=== PATIENT | female | born 1955 | race Hispanic/Latino ===

== ENCOUNTER 2022-09-09 16:46 | Observation (INO) | payer OTHER ==
--- OUTSIDE RECORDS SUMMARY | 2022-09-09 16:49 | XMS REPORT | Continuity of Care Document ---
:1955 Author Organization [facility] t Address [address] [address] [place] [id number] Care Team Providers Name Role Phone CHARLETTE FRAUSTO Primary Care Physician Unavailable RADIOLOGY Attending Clinician Unavailable Radiology Attending Clinician Unavailable Doctor Unassigned, [place] Attending Clinician Unavailable Artie De La Cruz RN Attending Clinician Unavailable BRIDGET ISAACS Attending Clinician Unavailable Lab, Adc Fam Pob I Attending Clinician Unavailable Bridget Almaraz Attending Clinician Maxine Arteaga MD Attending Clinician MAXINE ARTEAGA Attending Clinician Unavailable CHARLETTE FRAUSTO Admitting Clinician Unavailable Payers Payer Name Policy Type Policy Number Effective Date Expiration Date S sadia [employer] [id number] 2018 OUT OF NETWORK 00:00:00 Problems Condition Condition Condition Status Onset Resolution Last Treating Co mments Source Name Details Category Date Date Treatment Clinician Date No known No known Disease Unive rs active active ity of problems problems [facility] Allergies, Adverse Reactions, Alerts Allergy Allergy Status Severity Reaction(s) Onset Inactive Treating Comm ents Source Name Type Date Date Clinician SHELLFIS DRUG Active SOB 2019-0 Univers H INGREDI 9-10 ity of DERIVED 00:00: [place] [facility] [place] Shellfis Propensi Active Shortness of 2019-0 Univers h ty to Breath 9-10 ity of Derived adverse 00:00: [place] [facility] Social History Social Habit Start Date Stop Date Quantity Comments Source Exposure to Not sure [facility] SARS-CoV-2 (event) Medica l Branch Sex Assigned [birth year] [facility] 00:00:00 00:00:00 Medical Branch Smoking Status Start Date Stop Date Source Unknown if ever smoked [facility] Medications Ordered Filled Start Stop Current Ordering Indication Dosage Frequency Signature Comments Components Source Medication Medication Date Date Medication? Clinician (SIG) Name Name alendronate Yes TAKE 1 Univ ers 35 mg 8-22 TABLET BY ity of tablet 00:00: MOUTH ONCE [place] [facility] alendronate Yes TAKE 1 Univ ers 35 mg 8-22 TABLET BY ity of tablet 00:00: MOUTH ONCE [facility] alendronate Yes TAKE 1 Univ ers 35 mg 8-22 TABLET BY ity of tablet 00:00: MOUTH ONCE [facility] alendronate Yes TAKE 1 Univ ers 35 mg 8-22 TABLET BY ity of tablet 00:00: MOUTH ONCE [facility] alendronate Yes TAKE 1 Univ ers 35 mg 8-22 TABLET BY ity of tablet 00:00: MOUTH ONCE [facility] alendronate Yes TAKE 1 Univ ers 35 mg 8-22 TABLET BY ity of tablet 00:00: MOUTH ONCE [facility] alendronate Yes TAKE 1 Univ ers 35 mg 8-22 TABLET BY ity of tablet 00:00: MOUTH ONCE [facility] alendronate Yes TAKE 1 Univ ers 35 mg 8-22 TABLET BY ity of tablet 00:00: MOUTH ONCE [facility] alendronate Yes TAKE 1 Univ ers 35 mg 8-22 TABLET BY ity of tablet 00:00: MOUTH ONCE [facility] Vital Signs Vital Name Observation Time Observation Value Comments Source Systolic blood 2018-12-09 15:06:00 93 mm[Hg] Univer sity of pressure [facility] Diastolic blood 2018-12-09 15:06:00 61 mm[Hg] Unive rsity of pressure [facility] Heart rate 2018-12-09 15:06:00 65 /min [facility] Body temperature 2018-12-09 15:06:00 36.67 Sharyn Univ ersity [facility] Respiratory rate 2018-12-09 15:06:00 18 /min General acute hospital Body height 2018-12-09 15:06:00 167.6 cm [facility] Body weight 2018-12-09 15:06:00 69.31 kg [facility] BMI 2018-12-09 15:06:00 24.66 kg/m2 [facility] Procedures Procedure Date / Time Performing Clinician Source Performed BI SCREENING 2021-02-09 16:39:00 Requisition, Paper [facility] TOMOSYNTHESIS BILATERAL Medical Branch BI SCREENING 2020-01-12 21:45:03 Requisition, Paper [facility] TOMOSYNTHESIS BILATERAL [facility] Branch DEXA AXIAL (HIP AND 2020-01-12 21:06:52 Requisition, Paper [facility] SPINE) Medical Branch ASSIGNMENT OF BENEFITS 2020-01-12 20:15:50 Doctor Unassigned, No [facility] Name [facility] ASSIGNMENT OF BENEFITS 2018-12-09 14:51:40 Doctor Unassigned, No [facility] Encounters Start End Encounter Admission Attending Care Care Encounter Source Date/Time Date/Time Type Type Clinicians Facility Department ID 2021-02-09 2021-02-09 Outpatient R RADIOLOGY [facility] [id number] Univers 10:06:47 23:59:00 ity of [facility] 2021-02-09 2021-02-09 [facility] Radiology [facility] [id number] Univers 10:00:00 23:59:00 Encounter [place] [id number] ity of [place] [id number] [facility] [phone] [address] 2020-01-12 2020-01-12 [facility] Radiology [place] [id number] Univers 15:30:24 23:59:00 Encounter [place] [id number] ity of [place] [id number] [facility] [phone] [address] 2020-01-12 2020-01-12 [facility] Radiology [facility] [id number] Univers 15:00:00 15:29:00 Encounter [place] [id number] ity of [place] [id number] [facility] [phone] [facility] [address] [place] 2020-01-12 2020-01-12 Outpatient R RADIOLOGY [facility] [id number] Univers 00:00:00 00:00:00 ity of [facility] 2020-01-12 2020-01-12 Orders Doctor SANTI[place] [id number] Univers 00:00:00 00:00:00 Only Unassigned, JATIN [id number] ity of [place] [facility] [id number] [place] [phone] [facility] 009 [place] 2019-11-29 2019-11-29 Telephone JACK De La Cruz [id number] Univers 00:00:00 00:00:00 Artie JATIN [id number] it y of HOSPITAL [id number] [place] [phone] [facility] 019 [place] 2019-11-28 2019-11-28 Outpatient R FERNY [facility] [id number] Univers 16:00:00 16:00:00 BRIDGET jessicamelanie [facility] 2019-11-28 2019-11-28 Laboratory Lab, Adc Fam Pob I [facility] 1.2. [id number] Univers 15:27:59 15:35:04 Only Bridget Isaacs [facility] [id number] ity of [place] [id number] [place] Shobha [phone] [address] Office [address] [employer] 2019-11-28 2019-11-28 Letter Doctor JACK [id number] Univers 00:00:00 00:00:00 (Out) Unassigned, JATIN [id number] ity of [place] [facility] [id number] [place] [phone] [facility] 044 [place] 2019-01-02 2019-01-02 Outpatient R RADIOLOGY [facility] [id number] Univers 14:33:50 23:59:00 ity [facility] 2018-12-09 2018-12-09 Office Pelon [facility] [id number] Univers 09:54:15 10:54:45 Visit Maxine Salcedo [id number] [id number] [place] [phone] Mi dical nal 205 Branch [facility] 2018-12-09 2018-12-09 Outpatient R PELON [facility] [id number] Univers 09:45:00 10:54:45 MAXINE lopezy o f [facility] 2018-12-09 2018-12-09 Orders Doctor JACK [id number] Univers 00:00:00 00:00:00 Only Unassigned, JATIN [id number] ity of [place] [facility] [id number] [place] [phone] [facility] 009 Branch Results Test Description Test Time Test Comments Results Result Sourc e Comments BI SCREENING 2019-12-31 Examination:BI Universi ty of TOMOSYNTHESIS 3 SCREENING [place] [facility] BILATERAL 21:58:42 TOMOSYNTHESIS Branch BILATERAL History:Patient is 64 year old and is seen for: ?Breast cancer screening. Computer-aided detection (CAD) utilized. Comparisons: 01/02/2019 BI SCREENING TOMOSYNTHESIS BILATERAL, 04/04/2017 SCREENING DIGITAL BREAST TYLER, and 02/26/2014 BI SCREENING MAMMOGRAM BILATERAL Findings:The breasts are heterogeneously dense, which may obscure small masses. BilateralThere are skin and round calcifications seen in both breasts. Compared to the previous study, there are no significant changes. Impression:No signs of malignancy. Recommendation:[place] mammographic follow-up - Bilateral BI-RADS Category: Both 2 - Benign DEXA AXIAL (HIP 2019-12-31 HISTORY: Age Univers ity of AND SPINE) 3 related [facility] 21:17:28 osteoporosis. Branch TECHNIQUE: Bone density estimation is done using DEXA scan, over the righthip and lumbar spines. FINDINGS: Details of the results are enclosed for your review. The summaryis as follows. RIGHT HIP:BMD value is 0.761 gm/sq cm, with T-score of -2.0. Estimated BMD in theneck is 0.748 g/sq cm with T score of - 2.1. Slight further loss of bonemineral density noted since March 2018 study. LUMBAR SPINES:Average BMD value from L1 through L4 is 0.856 gm/sq cm, with T-score - 2.7.There is slight further loss of bone mineral density when compared withDecember 2018 study. 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 ASSESSMENT: WHO-definitions: T-score normal: +/- 1 SD around the meanosteopenia: >1 to 2.4 SD below the meanosteoporosis: >2.5 SD below the meanFracture risk doubles for each 1.5 SD below the mean. [facility], Radiant Results Inft User - 01/12/2020 4:18 PM CDTHISTORY: Age related osteoporosis.TECHNI QUE: Bone density estimation is done using DEXA scan, over the righthip and lumbar spines.FINDINGS: Details of the results are enclosed for your review. The summaryis as follows.RIGHT HIP:BMD value is 0.761 gm/sq cm, with T-score of -2.0. Estimated BMD in theneck is 0.748 g/sq cm with T score of - 2.1. 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
[2022-09-09 17:29] LABS: Absolute Lymphocytes (CBC) 2.1 K/uL (0.7-4.9); Hematocrit 40.9 % (36.0-45.0); Lymphocytes % 29.1 % (15.3-44.8); MCV 90.9 fL (80-100); MPV 9.6 fL (7.6-11.3)
[2022-09-09 17:38] LABS: Protime INR 1.07
[2022-09-09 17:47] LABS: Magnesium 2.2 mg/dL (1.6-2.4); Potassium 3.9 mEq/L (3.5-5.1); Troponin High Sensitivity 3.4 pg/mL (<58.9)
--- NOTE | 2022-09-09 18:11 | RAD REPORT ---
EXAM DESCRIPTION: Raphael Single View09/09/2022 5:44 pm CLINICAL HISTORY: Chest pain COMPARISON: none FINDINGS: The lungs appear clear of acute infiltrate. The heart is normal size IMPRESSION: No acute abnormalities displayed
--- NOTE | 2022-09-09 18:47 | RAD REPORT ---
EXAM DESCRIPTION: CT - Head Brain Wo Cont - 09/09/2022 6:30 pm CLINICAL HISTORY: Left arm numbness COMPARISON: 2011 TECHNIQUE: Computed axial tomography of the head was obtained. IV contrast was not requested. All CT scans are performed using dose optimization technique as appropriate and may include automated exposure control or mA/KV adjustment according to patient size. FINDINGS: An intracranial bleed is not seen The ventricles are normal in caliber No extra-axial fluid collection is noted. Small low-density areas right frontal lobe unchanged probably old infarction Fluid within the sinuses/ mastoids is not seen. IMPRESSION: No acute intracranial abnormality is seen If patient's symptoms persist MRI of the brain would be recommended
[2022-09-09] MEDS ORDERED: HYDROCODONE/APAP 5/325 MG TAB ONE (18:54)
[2022-09-09] MEDS ORDERED: METOCLOPRAMIDE 10 MG/2mL INJ ONE (18:54)
[2022-09-09] MEDS ORDERED: NA CHLORIDE 0.9% 500 ML ONE (18:54)
--- NOTE | 2022-09-09 18:57 | RAD REPORT ---
EXAM DESCRIPTION: CT - Chest Abd Pelvis Wo Con - 09/09/2022 6:31 pm CLINICAL HISTORY: Chest and abdominal pain. Left arm numbness COMPARISON: none TECHNIQUE: Computed axial tomography of the chest, abdomen and pelvis was obtained. Oral contrast wa s given. IV contrast was not requested. All CT scans are performed using dose optimization technique as appropriate and may include automated exposure control or mA/KV adjustment according to patient size. FINDINGS: The evaluation of mediastinum, colleen, vessels and solid organs is limited secondary to the lack of IV contrast administration Calcified granuloma right lung. Remainder of the lungs are clear No mediastinal or hilar lymphadenopathy is seen. A pleural effusion is not present. A pericardial effusion is not seen. The liver, spleen, pancreas, adrenals and kidneys appear grossly normal There is no evidence of diverticulitis. 5.7 x 2.7 centimeter soft tissue structure left lower pelvis IMPRESSION: 5.7 x 2.7 centimeter soft tissue structure left pelvis. Pelvic ultrasound recommended
--- NOTE | 2022-09-09 19:03 | ER ---
Nurse's Notes [facility] Name: Anali Mishra Age: 66 yrs Sex: Female : 1955 Arrival Date: 09/09/2022 Time: 16:46 Bed 18 Private MD: Diagnosis: Paresthesia of skin;Chest pain, unspecified Presentation: 09/09 16:59 Chief complaint: Patient states: this morning I woke up with numbness in my left arm, iw it has gotten better throughout the day except in my fingers, also have pain in my left side of body and pain in my back , also left side of my neck is stiff, over a week ago I started feeling like i have water in my left ear, she has had the pain on and off since last week , but this is the first time I had numbness. Coronavirus screen: At this time, the client does not indicate any symptoms associated with coronavirus-19. Ebola Screen: Patient negative for fever greater than or equal to 101.5 degrees Fahrenheit, and additional compatible Ebola Virus Disease symptoms Patient denies exposure to infectious person. Patient denies travel to an Ebola-affected area in the 21 days before illness onset. No symptoms or risks identified at this time. Initial Sepsis Screen: Does the patient meet any 2 criteria? No. Patient's initial sepsis screen is negative. Does the patient have a suspected source of infection? No. Patient's initial sepsis screen is negative. Risk Assessment: Do you want to hurt yourself or someone else? Patient reports no desire to harm self or others. Onset of symptoms was September 02, 2022. 16:59 Method Of Arrival: Ambulatory iw 16:59 Acuity: YARELY 3 iw Historical: - Allergies: 17:15 SHELLFISH; iw - Home Meds: 17:15 alendronate 35 mg oral tablet every week [Active]; iw - PMHx: 17:15 Osteoporosis; iw - PSHx: 17:15 hysterectomy; iw 17:16 jaw surgery; iw - Social history:: Smoking status: . - Family history:: not pertinent. - Hospitalizations: : No recent hospitalization is reported. Screenin:49 [facility] ED Fall Risk Assessment (Adult) History of falling in the last 3 months, nj1 including since admission No falls in past 3 months (0 pts) Confusion or Disorientation No (0 pts) Intoxicated or Sedated No (0 pts) Impaired Gait No (0 pts) Mobility Assist Device Used No (0 pt) Altered Elimination No (0 pt) Score/Fall Risk Level 0 - 2 = Low Risk Oriented to surroundings, Maintained a safe environment, Hourly rounding (assess needs \T\ fall precautionary measures) done. Abuse screen: Denies threats or abuse. Denies injuries from another. Nutritional screening: No deficits noted. Tuberculosis screening: No symptoms or risk factors identified. Assessment: 17:40 General: Appears in no apparent distress. comfortable, Behavior is calm, cooperative, nj1 appropriate for age. 17:40 Pain: Complains of pain in head Pain currently is 7 out of 10 on a pain scale. Neuro: nj1 Level of Consciousness is awake, alert, obeys commands, Oriented to person, place, time, situation. Neuro: Reports numbness in left arm. Cardiovascular: Patient's skin is warm and dry. Respiratory: Airway is patent Respiratory effort is even, unlabored. 18:50 Reassessment: Patient appears in no apparent distress at this time. Patient and/or nj1 family updated on plan of care and expected duration. Pain level reassessed. Patient is alert, oriented x 3, equal unlabored respirations, skin warm/dry/pink. 20:15 Reassessment: Pt has a few questions for provider before going to room. Rolando Vasquez [employer] nj1 notified, he will come talk to patient prior to being transferred to assigned room. Vital Signs: 16:59 BP 132 / 80; Pulse 64; Resp 16; Temp 98.2; Pulse Ox 99% on R/A; Weight 65.77 kg; Height iw 5 ft. 5 in. ; 18:50 BP 135 / 78; Pulse 59; Resp 16; Pulse Ox 99% on R/A; Pain 7/10; nj1 20:00 BP 110 / 65; Pulse 61; Resp 15; Pulse Ox 98% on R/A; Pain 1/10; nj1 16:59 Body Mass Index 24.13 (65.77 kg, 165.1 cm) iw 18:50 Pain Scale: Adult nj1 20:00 Pain Scale: Adult [facility] ED Course: 16:51 Patient arrived in ED. im 17:01 Ralph Landeros MD is Attending Physician. rn 17:02 Triage completed. iw 17:03 Arm band placed on. iw 17:21 Initial lab(s) drawn, by fl, sent to lab. Inserted saline lock: 22 gauge in right iw antecubital area, using aseptic technique. Blood collected. 17:24 Nora Rizvi RN is Primary Nurse. nj1 17:29 Patient has correct armband on for positive identification. Placed in gown. Bed in low mm9 position. Call light in reach. Side rails up X 1. Warm blanket given. Client placed on continuous cardiac and pulse oximetry monitoring. NIBP monitoring applied. air sampling and monitoring on. Pulse ox on. NIBP on. 17:46 XRAY Chest (1 view) In Process Unspecified. EDMS 18:32 CT Head Brain wo Cont In Process Unspecified. EDMS 18:33 Chest Abd Pelvis Wo Con In Process Unspecified. EDMS 19:03 Roshan Landeros MD is Hospitalizing Provider. rn 20:05 Patient admitted, IV remains in place. nj1 20:24 No provider procedures requiring assistance completed. nj1 Administered Medications: 18:50 Drug: NS 0.9% IV 500 ml Route: IV; Rate: bolus; Site: right antecubital; nj1 19:20 Follow up: Response: No adverse reaction; IV Status: Completed infusion; IV Intake: nj1 500ml 18:50 Drug: metoCLOPramide IVP 10 mg Route: IVP; Site: right antecubital; nj1 20:25 Follow up: Response: No adverse reaction nj1 18:50 Drug: HYDROcodone-acetaminophen PO 5 mg-325 mg 1 tabs Route: PO; nj1 20:24 Follow up: Response: No adverse reaction nj1 19:40 Drug: Aspirin PO Chewable Tablet 324 mg Route: PO; nj1 20:24 Follow up: Response: No adverse reaction nj1 Intake: 19:20 IV: 500ml; Total: 500ml. nj1 Outcome: 19:03 Decision to Hospitalize by Provider. rn 20:03 Admitted to Med/surg accompanied by tech, via wheelchair, room 220, Report called to fer Bell RN 20:03 Condition: stable nj1 20:03 Instructed on the need for admit. 20:53 Patient left the ED. nj1 Signatures: Dispatcher [employer] Carlie Hogan RN RN Ralph Landeros MD MD rn Martinez, Maria mm9 Nora Rizvi RN RN nj1 Amanda Balbuena Corrections: (The following items were deleted from the chart) 17:58 17:40 Pain: Complains of pain in head [place] [id number] 19:11 18:50 metoCLOPramide IVP 10 mg IVP in left antecubital [facility]
--- NOTE | 2022-09-09 19:04 | EDPHYS ---
Physician Documentation [facility] Name: Anali Mishra Age: 66 yrs Sex: Female : 1955 Arrival Date: 09/09/2022 Time: 16:46 Bed 18 Private MD: ED Physician Ralph Landeros HPI: 09/09 17:17 This 66 yrs old Female presents to ER via Ambulatory with complaints of rn Numbness Of Arm, numbness of leg. 17:17 The patient's problem is reported as paresthesias, in left upper extremity, in left rn lower extremity. Onset: The symptoms/episode began/occurred 1 week(s) ago. Duration: The episodes are intermittent. The symptoms are alleviated by nothing. The symptoms are aggravated by nothing. Severity of symptoms: At their worst the symptoms were moderate in the emergency department the symptoms have improved. The patient has not experienced similar symptoms in the past. The patient has not recently seen a physician. Pt reports intermittent episodes of left arm tingling, left leg tingling, heaviness in both, over 1 week, not sure if completely resolves but is seeming to improve some. Not completely back to baseline. Also reports chest pressure. No head injury. Reports mild neck pain. NO weakness. Not dropping things. + headache. . Historical: - Allergies: 17:15 SHELLFISH; iw - Home Meds: 17:15 alendronate 35 mg oral tablet every week [Active]; iw - PMHx: 17:15 Osteoporosis; iw - PSHx: 17:15 hysterectomy; iw 17:16 jaw surgery; iw - Social history:: Smoking status: . - Family history:: not pertinent. - Hospitalizations: : No recent hospitalization is reported. ROS: 17:17 Constitutional: Negative for fever, chills, and weight loss, Eyes: Negative for injury, rn pain, redness, and discharge, Neck: Negative for injury, and swelling, Cardiovascular: Negative for palpitations, and edema, Respiratory: Negative for shortness of breath, cough, wheezing, and pleuritic chest pain, Abdomen/GI: Negative for abdominal pain, nausea, vomiting, diarrhea, and constipation, Back: Negative for injury and pain, MS/Extremity: Negative for injury and deformity, Skin: Negative for injury, rash, and discoloration, Neuro: Negative for headache, weakness, and seizure. Exam: 17:17 Constitutional: This is a well developed, well nourished patient who is awake, alert, rn and in no acute distress. Head/Face: Normocephalic, atraumatic. Neck: Trachea midline, no masses palpated, and no cervical lymphadenopathy. Supple, full range of motion without nuchal rigidity, or vertebral point tenderness. No Meningismus. Cardiovascular: Regular rate and rhythm. No pulse deficits. Respiratory: No increased work of breathing, no retractions or nasal flaring. Abdomen/GI: Soft, non-tender Skin: Warm, dry MS/ Extremity: Pulses equal, no cyanosis. Neuro: Awake and alert, GCS 15, oriented to person, place, time, and situation. Cranial nerves II-XII grossly intact. Motor strength 5/5 in all extremities. Decreased sensation distal LUE and distal LLE. Cerebellar exam normal. Normal gait. Vital Signs: 16:59 BP 132 / 80; Pulse 64; Resp 16; Temp 98.2; Pulse Ox 99% on R/A; Weight 65.77 kg; Height iw 5 ft. 5 in. ; 18:50 BP 135 / 78; Pulse 59; Resp 16; Pulse Ox 99% on R/A; Pain 7/10; nj1 20:00 BP 110 / 65; Pulse 61; Resp 15; Pulse Ox 98% on R/A; Pain 1/10; nj1 16:59 Body Mass Index 24.13 (65.77 kg, 165.1 cm) iw 18:50 Pain Scale: Adult nj1 20:00 Pain Scale: Adult nj1 MDM: 17:01 Patient medically screened. rn 19:02 Differential diagnosis: CVA, TIA, metabolic disorder. Data reviewed: vital signs, rn nurses notes, lab test result(s), EKG, radiologic studies, CT scan, and as a result, I will admit patient. Consideration of Admission/Observation Patient was admitted/placed on observation. Escalation of care including admission/observation considered. Counseling: I had a detailed discussion with the patient and/or guardian regarding: the historical points, exam findings, and any diagnostic results supporting the discharge/admit diagnosis, lab results, radiology results, the need for further work-up and treatment in the hospital. ED course: Pt refuses contrast, no acute findings in ct head/chest/abdomen/pelvis, unrelated left pelvis mass, will admit for cardiac w/u and stroke rule out. . 09/09 17:15 Order name: Basic Metabolic Panel; Complete Time: 17:47 rn 11 17:15 Order name: CBC with Diff; Complete Time: 17:47 rn 11 17:15 Order name: Magnesium; Complete Time: 17:47 rn 11 17:15 Order name: NT PRO-BNP; Complete Time: 17:47 rn 11 17:15 Order name: PT-INR; Complete Time: 17:47 rn 11 17:15 Order name: Troponin HS; Complete Time: 17:47 rn 11 17:15 Order name: CT Head Brain wo Cont; Complete Time: 18:53 rn 09/09 17:15 Order name: XRAY Chest (1 view); Complete Time: 18:42 rn 11 18:27 Order name: Chest Abd Pelvis Wo Con; Complete Time: 19:00 EDMS 09/09 19:19 Order name: US Pelvis Complete la1 09/09 20:40 Order name: EDOH 09/09 20:41 Order name: [facility] 09/09 17:15 Order name: EKG; Complete Time: 17:16 rn 11 17:15 Order name: Cardiac monitoring; Complete Time: 17:29 rn 11 17:15 Order name: EKG - Nurse/Tech; Complete Time: 17:29 rn 11 17:15 Order name: IV Saline Lock; Complete Time: 17:17 rn 11 17:15 Order name: Labs collected and sent; Complete Time: 17:17 rn 11 17:15 Order name: O2 Per Protocol; Complete Time: 17:28 rn 11 17:15 Order name: O2 Sat Monitoring; Complete Time: 17:28 rn Administered Medications: 18:50 Drug: NS 0.9% IV 500 ml Route: IV; Rate: bolus; Site: right antecubital; nj1 19:20 Follow up: Response: No adverse reaction; IV Status: Completed infusion; IV Intake: nj1 500ml 18:50 Drug: metoCLOPramide IVP 10 mg Route: IVP; Site: right antecubital; nj1 20:25 Follow up: Response: No adverse reaction nj1 18:50 Drug: HYDROcodone-acetaminophen PO 5 mg-325 mg 1 tabs Route: PO; nj1 20:24 Follow up: Response: No adverse reaction nj1 19:40 Drug: Aspirin PO Chewable Tablet 324 mg Route: PO; nj1 20:24 Follow up: Response: No adverse reaction nj1 Disposition Summary: 09/09/22 19:03 Hospitalization Ordered Hospitalization Status: Observation rn Provider: Roshan Landeros rn Location: Telemetry/MedSurg (observation) rn Condition: Stable rn Problem: new rn Symptoms: have improved rn Bed/Room Type: Standard rn Room Assignment: 220(09/09/22 19:46) Diagnosis - Paresthesia of skin rn - Chest pain, unspecified rn Forms: - Medication Reconciliation Form rn - SBAR form rn Signatures: Dispatcher [employer] EDCarlie Brian RN RN Ralph Landeros MD MD rn Rolando Vasquez, FEEDER OPERATOR-C FEEDER OPERATOR-[facility] Arely Burrell RN RN cg Nora Rizvi RN RN nj1 Corrections: (The following items were deleted from the chart) 18:27 17:16 Head Angio+CT.RAD.BRZ ordered. EDOH EDMS 19:46 19:03 rn cg
--- NOTE | 2022-09-09 19:31 | P.HP ---
Certification for Inpatient Patient admitted to: Observation With expected LOS: <2 Midnights Patient will require the following post-hospital care: None Practitioner: I am a practitioner with admitting privileges, knowledge of patient current condition, hospital course, and medical plan of care. Services: Services provided to patient in accordance with Admission requirements found in Title 42 Section 412.3 of the Code of Federal Regulations Patient History Date of Service: 09/09/22 Reason for admission: Paresthesias History of Present Illness: 66-year-old female with history of osteoporosis presents emergency department with left upper extremity paresthesias that started this morning when she woke up around 1030, she reports intermittent paresthesias of bilateral lower extremities primarily in her toes as well over the course of last 1 week or so. She also reports some back pain around her thoracic spine nontender which has resolved. She is evaluated in the emergency department her labs are unremarkable CT head noncontrast negative for acute findings chest x-ray unremarkable CT chest abdomen pelvis without contrast was performed which revealed a likely unrelated 5.7 x 2.7 cm soft tissue structure left lower pelvis. Pelvic ultrasound recommended which has been ordered. Patient has an allergy to shellfish and declined CT with IV contrast of the head/neck. Will admit under observation for MRI, will also obtain pelvic ultrasound. - Past Medical/Surgical History -: Osteoporosis -: Hysterectomy -: Jaw surgery Psychosocial/ Personal History: Patient is retired and lives at home alone - Family History Sister -: Cancer - Social History Alcohol use: No CD- Drugs: No Caffeine use: Yes Place of Residence: Home Review of Systems 10-point ROS is otherwise unremarkable Musculoskeletal: Back Pain Neurological: Other, As per HPI Physical Examination - Physical Exam General: Alert, In no apparent distress, Oriented x3 HEENT: Atraumatic, PERRLA, Mucous membr. moist/pink, EOMI, Sclerae nonicteric Neck: Supple, 2+ carotid pulse no bruit, No LAD, Without JVD or thyroid abnormality Respiratory: Clear to auscultation bilaterally, Normal air movement Cardiovascular: Regular rate/rhythm, Normal S1 S2 Capillary refill: <2 Seconds Gastrointestinal: Normal bowel sounds, No tenderness Musculoskeletal: No tenderness Integumentary: No rashes Neurological: Normal speech, Normal strength at 5/5 x4 extr, Normal tone, Normal affect, Other (NIH 0) - Studies Laboratory Data (last 24 hrs) 09/09/22 17:18: PT 11.8, INR 1.07 09/09/22 17:18: WBC 7.20, Hgb 13.4, Hct 40.9, Plt Count 242 09/09/22 17:18: Sodium 141, Potassium 3.9, BUN 15, Creatinine 0.76, Glucose 109 H, Magnesium 2.2 Assessment and Plan - Plan Assessment: Left upper extremity paresthesiaresolved Back pain/thoracic spine Incidental finding 5.7 x 2.7 soft tissue structure left pelvis Plan: Left upper extremity paresthesiaresolved CT head negative for acute findings, patient refused head/neck angio given concern for contrast allergy. NIH is currently 0 symptoms started at 1030 this morning are now resolved also reports some intermittent tingling of bilateral feet over the course of last 1 week. MRI ordered for the morning. Aspirin, statin, folic acid. Neurology consult. Back pain/thoracic spine CT chest abdomen pelvis negative for acute findings of the spine, pain is resolved at this time. Will trend troponins to rule out ACS. Incidental finding 5.7 x 2.7 soft tissue structure left pelvis Pelvic ultrasound ordered, patient made aware of findings. Will discuss further when results available. DVT PPX: Lovenox Code status: Full Discharge Plan: Home Plan to discharge in: 24 Hours - Advance Directives Does patient have a Living Will: No Does patient have a Durable POA for Healthcare: No - Code Status/Comfort Care Code Status Assessed: Yes (Full code) Critical Care: No Time Spent Managing Pts Care (In Minutes): 55
[2022-09-09] MEDS ORDERED: ASPIRIN 81 MG CHEWABLE TABLET ONE (19:45)
--- NOTE | 2022-09-09 20:39 | RAD REPORT ---
EXAM DESCRIPTION: US - Transvaginal Study Probe - 09/09/2022 8:00 pm CLINICAL HISTORY: Pelvic mass COMPARISON: CT September 09, 2022 FINDINGS: Hysterectomy Neither ovary clearly seen secondary to overlying bowel gas 5 x 2.6 centimeter heterogeneous mass left adnexa. There is minimal flow within the mass. Adjacent to the periphery of the mass there is not significant increased flow to suggest a torsion. The mass is mostly hypo and isoechoic. No significant free fluid IMPRESSION: 5 x 2.6 centimeter heterogeneous mass left adnexa may represent an enlarged ovary, chron ic inflammatory mass or solid neoplasm
[2022-09-09 21:05] VITALS: BMI 24.5
[2022-09-09] MEDS ORDERED: ONDANSETRON 4 MG/2 ML VIAL IV PRN (21:06)
[2022-09-09] MEDS ORDERED: ATORVASTATIN 40 MG TAB PO SCH (21:06)
[2022-09-09 21:18] VITALS: O2SAT 98
--- NOTE | 2022-09-09 22:15 | RAD REPORT ---
EXAM DESCRIPTION: USCarotid Artery Bilateral09/09/2022 9:40 pm CLINICAL HISTORY: Numbness COMPARISON: None FINDINGS: The velocity of the right internal carotid artery equals 92 cm/sec. The right ICA/CCA rati o 1.2 The velocity of the left internal carotid artery equals 98 cm/sec. The left ICA/CCA ratio 1.5 Plaque is not visualized within the carotid and vertebral arteries. The vertebral arteries demonstrate antegrade flow 1.7 centimeter nodule left lobe of thyroid gland containing cystic and solid appearing elements. Alyssa pheries calcified IMPRESSION: No significant vascular stenosis 1.7 centimeter heterogeneous nodule left lobe thyroid gland. Periphery is calcified. Ultrasound-guide d fine-needle aspiration recommended NASCET criteria used. Mild 0-49% stenosis Moderate 50-69% stenosis Severe 70-99% stenosis
[2022-09-10 03:40] LABS: Absolute Lymphocytes (CBC) 2.7 K/uL (0.7-4.9); Hematocrit 36.3 % (36.0-45.0); Lymphocytes % 37.3 % (15.3-44.8); MCV 89.2 fL (80-100); MPV 9.7 fL (7.6-11.3); RBC Red Blood Cell Count 4.07 M/uL (3.86-4.86)
[2022-09-10 04:01] LABS: Potassium 3.8 mEq/L (3.5-5.1); Troponin High Sensitivity 4.6 pg/mL (<58.9)
[2022-09-10 04:07] LABS: Thyroid Stimulating Hormone 5.14 uIU/mL (0.358-3.740)
--- NOTE | 2022-09-10 07:01 | P.PN ---
Date of Service: 09/10/22 Subjective: feeling better today slight numbness/tingling on left hand today intermittent pressure on left side of head; different feeling from previous headaches ROS: 10 point ROS as noted above, otherwise negative Physical Exam: GEN: Alert, oriented, NAD HEENT: Normal conjunctiva, sclera anicteric CV: Regular rate and rhythm, no edema Pulm: Nonlabored respirations on room air ABD: Soft, nontender, nondistended MSK: No joint tenderness Integumentary: No rashes Neuro: Normal speech, normal affect, NIH is currently 0 vitals reviewed Problem List: Left upper extremity paresthesiaresolved CT head negative for acute findings patient refused head/neck angio given concern for contrast allergy. symptoms started at 1030 yesterday are now improving. also reports some intermittent tingling of bilateral feet over the course of last 1 week. Aspirin, statin, folic acid. Neurology consult MRI ordered Back pain/thoracic spine CT chest abdomen pelvis negative for acute findings of the spine, pain is resolved at this time. troponins negative x3 Incidental finding 5.7 x 2.7 soft tissue structure left pelvis CT chest/abdomen (09/09): 5.7 x 2.7 centimeter soft tissue structure left pelvis Pelvic u/s(09/09): 5 x 2.6 centimeter heterogeneous mass left adnexa may represent an enlarged ovary, chronic inflammatory mass or solid neoplasm f/u with gynecology for further assessment / imaging Incidental finding 1.7 centimeter heterogeneous nodule left lobe thyroid gland Carotid u/s (09/09): 1.7 centimeter heterogeneous nodule left lobe thyroid gland. Periphery is calcified Patient has never been told she has thyroid problems. states her sister had Sampson's thyroiditis f/u with PCP for possible thyroid fine needle aspiration biopsy for further assessment VTE: Lovenox Code: Full Dispo: Home 24 hrs
[2022-09-10] MEDS ORDERED: PNEUMOCOCCAL VACCINE 0.5 ML IMVAC ONE (08:00)
[2022-09-10] MEDS ORDERED: ENOXAPARIN 40 MG/0.4 ML SQ SCH (09:00)
[2022-09-10] MEDS ORDERED: FOLIC ACID 1 MG TABLET PO SCH (09:00)
--- NOTE | 2022-09-10 10:20 | RAD REPORT ---
EXAM DESCRIPTION: MRI - Brain Wo Cont - 09/10/2022 10:07 am CLINICAL HISTORY: Left sided paresthesia Headache, drowsiness, CVA symptomology COMPARISON: Head Brain Wo Cont dated 09/09/2022; Chest Abd Pelvis Wo Con dated 09/09/2022 TECHNIQUE: Multi-sequence, multiplanar MR imaging of the brain was performed without contrast. FINDINGS: No intracranial hemorrhage, hydrocephalus or extra-axial fluid collections.Mild periventri cular and deep white matter chronic microvascular ischemic changes. No edema or shift of midline stru ctures. No findings to suspect brain mass. DWI is negative for acute CVA. Midline structures are normally formed. Mastoid air cells and paranasal sinuses are clear. IMPRESSION: Negative for acute CVA or other acute intracranial process.
--- NOTE | 2022-09-10 12:03 | EKG ---
Test Date: 2022-09-09 Test Time: 17:34:13 Jet Wiper: JAIME MEASUREMENT RESULTS: Intervals: Rate: 59 OR: 156 QRSD: 98 QT: 422 QTc: 417 Andrew: P: 12 OR: 156 QRS: -58 T: -4 INTERPRETIVE STATEMENTS: Sinus bradycardia Left axis deviation Low voltage QRS Cannot rule out Anterior infarct, age undetermined Abnormal ECG Compared to ECG 03/02/2005 08:50:00 Low QRS voltage now present Myocardial infarct finding now present Sinus rhythm no longer present T-wave abnormality no longer present Electronically Signed On 09-10-22 12:00:34 CDT by Justice Monroy
--- NOTE | 2022-09-10 12:30 | P.DS ---
Admission Date: 09/09/22 Discharge Date: 09/10/22 Reason for Admission: Paresthesias Consultations: Neurology - Dr. Stevenson Brief History of Present Illness: 66yo F, PMH: osteoporosis Patient presents emergency department with left upper extremity paresthesias that started this morning when she woke up around 1030, she reports intermittent paresthesias of bilateral lower extremities primarily in her toes as well over the course of last 1 week or so. She also reports some back pain around her thoracic spine nontender which has resolved. She is evaluated in the emergency department her labs are unremarkable CT head noncontrast negative for acute f indings chest x-ray unremarkable CT chest abdomen pelvis without contrast was performed which revealed a likely unrelated 5.7 x 2.7 cm soft tissue structure left lower pelvis. Pelvic ultrasound recommended which has been ordered. Patient has an allergy to shellfish and declined CT with IV contrast of the head/neck. Will admit under observation for MRI, will also obtain pelvic ultrasound. Hospital Course: Problem List: Left upper extremity paresthesiaresolved Back pain/thoracic spine Incidental finding 5 x 2.6 centimeter heterogeneous mass left adnexa may represent an enlarged ovary, chronic inflammatory mass or solid neoplasm Incidental finding 1.7 centimeter heterogeneous nodule left lobe thyroid gland Patient presented with left upper extremity paresthesias. CT head, Brain MRI were both negative for acute CVA or other acute intracranial process. MRI did not chronic microvascular changes, which would not be the cause of these symptoms. Neurology was consulted but out of town. Patient was given aspirin, statin, folic acid and had improvement of her symptoms. Symptoms most likely related to how patient was sleeping and lead to vascular compromise vs nerve entrapment. Symptoms resolved with time and without any further intervention. Patient does favor sleeping on her left side. Recommended patient to follow up with neurology for further outpatient evaluation, consider nerve conduction studies / EMG. Consideration for possibility of multiple sclerosis, but less likely. CT chest/abdomen incidentally found 5.7 x 2.7 centimeter soft tissue structure left pelvis. A pelvic and transvaginal ultrasound were performed and revealed 5 x 2.6 centimeter heterogeneous mass left adnexa may represent an enlarged ovary, chronic inflammatory mass or solid neoplasm. Recommended patient to follow up with gynecology for further assessment / imaging. A carotid ultrasound was also performed and incidentally found 1.7 centimeter heterogeneous nodule left lobe thyroid gland. Patient has never been told she has thyroid problems but did state her sister had Sampson's thyroiditis. Recommended patient to follow up with her PCP for possible thyroid fine needle aspiration biopsy for further assessment. Thyroid function testing was performed and normal / minimally elevated TSH (TSH: 5.14, Free T4: 1.01) New Prescriptions: Aspirin 81 mg for 2 months Plavix for 2 months Folic Acid daily Follow up: PCP 3-5 days Neurology within a month Gynecology within 2-4 weeks Physical Exam: GEN: Alert, oriented, NAD HEENT: Normal conjunctiva, sclera anicteric CV: Regular rate and rhythm, no edema Pulm: Nonlabored respirations on room air ABD: Soft, nontender, nondistended MSK: No joint tenderness Integumentary: No rashes Neuro: Normal speech, normal affect, NIH is currently 0 Vital Signs/Physical Exam: Temp Pulse Resp BP Pulse Ox 97.7 F 64 16 125/68 94 09/10/22 08:00 09/10/22 08:00 09/10/22 08:00 09/10/22 08:00 09/10/22 08:00 Laboratory Data at Discharge: WBC 7.30 thou/uL (4.3-10.9) 09/10/22 03:18 Hgb 12.1 g/dL (12.0-15.0) D 09/10/22 03:18 Hct 36.3 % (36.0-45.0) 09/10/22 03:18 Plt Count 212 thou/uL (152-406) 09/10/22 03:18 PT 11.8 SECONDS (9.5-12.5) 09/09/22 17:18 INR 1.07 09/09/22 17:18 Sodium 144 mEq/L (136-145) 09/10/22 03:18 Potassium 3.8 mEq/L (3.5-5.1) 09/10/22 03:18 BUN 16 mg/dL (7-18) 09/10/22 03:18 Creatinine 0.61 mg/dL (0.55-1.02) 09/10/22 03:18 Glucose 99 mg/dL (74-106) 09/10/22 03:18 Magnesium 2.2 mg/dL (1.6-2.4) 09/09/22 17:18 Triglycerides 73 mg/dL (<150) 09/10/22 03:18 Cholesterol 175 mg/dL (<200) 09/10/22 03:18 HDL Cholesterol 62 mg/dL (40-60) H 09/10/22 03:18 Cholesterol/HDL Ratio 2.82 09/10/22 03:18 Home Medications: Alendronate Sodium 1 tab PO EVERY 7TH DAY 09/09/22 Physician Discharge Instructions: Patient presented with left upper extremity paresthesias. CT head, Brain MRI were both negative for acute CVA or other acute intracranial process. MRI did not chronic microvascular changes, which would not be the cause of these symptoms. Neurology was consulted but out of town. Patient was given aspirin, statin, folic acid and had improvement of her symptoms. Symptoms most likely related to how patient was sleeping and lead to vascular compromise vs nerve entrapment. Symptoms resolved with time and without any further intervention. Patient does favor sleeping on her left side. Recommended patient to follow up with neurology for further outpatient evaluation, consider nerve conduction studies / EMG. Consideration for possibility of multiple sclerosis, but less likely. CT chest/abdomen incidentally found 5.7 x 2.7 centimeter soft tissue structure left pelvis. A pelvic and transvaginal ultrasound were performed and revealed 5 x 2.6 centimeter heterogeneous mass left adnexa may represent an enlarged ovary, chronic inflammatory mass or solid neoplasm. Recommended patient to follow up with gynecology for further assessment / imaging. A carotid ultrasound was also performed and incidentally found 1.7 centimeter heterogeneous nodule left lobe thyroid gland. Patient has never been told she has thyroid problems but did state her sister had Sampson's thyroiditis. Recommended patient to follow up with her PCP for possible thyroid fine needle aspiration biopsy for further assessment. Thyroid function testing was performed and normal / minimally elevated TSH (TSH: 5.14, Free T4: 1.01) New Prescriptions: Aspirin 81 mg for 2 months Plavix for 2 months Folic Acid daily Follow up: PCP 3-5 days Neurology within a month Gynecology within 2-4 weeks Followup: Zoey Armendariz MD [Primary Care Provider] - Time spent managing pt's care (in minutes): 45
[2022-09-10 12:32] VITALS: BP 120/61; TEMP 98
== END 2022-09-10 15:03 | disposition home or self-care (01) ==
LOC: ER 16:46 → ERHOLD 19:17 → 2ND 19:52
PROVIDERS: ADMIT Hospitalist; ATTEND Hospitalist
DX: R20.2 Paresthesia of skin (principal); M54.9 Dorsalgia, unspecified; N94.9 Unspecified condition associated with female genital organs and menstrual cycle; E04.1 Nontoxic single thyroid nodule; M81.0 Age-related osteoporosis without current pathological fracture; Z91.013 Allergy to seafood
CPT/HCPCS: 93005; 85025 ×2; 80048 ×2; 36415; 83735; 85610; 80061; 84443; 84484 ×3; 84439; 83880; 70450; 71250; 74176; 71045; 93880; 70551; 76856; 76830; 96374; 99285; J2765; J1650; J7040; G0378

== ENCOUNTER → 2022-10-24 | Day surgery (SDC) | payer OTHER ==
--- NOTE | 2022-10-24 12:49 | RAD REPORT ---
EXAM DESCRIPTION: US - Guided FNA Non Breast - 10/24/2022 11:09 am CLINICAL HISTORY: Thyroid nodule ICD E04.1 COMPARISON: August 2022 ultrasound TECHNIQUE: Risks, benefits and alternatives of procedure explained to the patient and informed conse nt obtained. Skin and deeper tissues anesthetized with lidocaine. Under sonographic guidance, five 25 gauge needle passes were obtained into the dominant nodule within the left lobe of the thyroid gland. Specimens given to pathology. Patient experienced no immediate complication IMPRESSION: Fine-needle aspiration of a dominant nodule within left lobe of thyroid gland
== END ==
LOC: FNA 10:00
PROVIDERS: ATTEND Surgery
PROC: 0GBG3ZX Excision of Left Thyroid Gland Lobe, Percutaneous Approach, Diagnostic (ICD-10-PCS; principal; 2022-10-24)
DX: E04.1 Nontoxic single thyroid nodule (principal)
CPT/HCPCS: 88162